=== PATIENT | female | born 1985 | race Caucasian/White ===

== ENCOUNTER → 2020-03-05 10:16 | Outpatient (CLI) | payer BC, SELFPAY ==
--- NOTE | ~2020-03-05 | US_ITS ---
US thyroid INDICATION: Possible right thyroid nodule/cyst. TECHNIQUE: Real-time sonographic images of the thyroid gland were obtained. COMPARISON: No prior studies for comparison. FINDINGS: The right thyroid lobe measures 3.8 x 1.2 x 1 cm. The left thyroid lobe measures 3.7 x 1.1 x 1.1 cm. There is normal echotexture and echogenicity throughout the thyroid gland. There is a smal l 2 mm cyst in the medial aspect of the isthmus, benign. Normal vascular flow is present. IMPRESSION: 1. Benign 2 mm cyst of the isthmus. Otherwise, unremarkable thyroid ultrasound. Reviewed, dictated and finalized at location A. IMPRESSION: 1. Benign 2 mm cyst of the isthmus. Otherwise, unremarkable thyroid ultrasound .
== END ==
PROVIDERS: PCP Internal Medicine; Visit Provider Internal Medicine
DX: E04.1 Nontoxic single thyroid nodule (principal)
CPT/HCPCS: 76536